=== PATIENT | female | born 1990 | race American Indian/Alaskan Native ===

== ENCOUNTER 2016-09-02 14:06 | Emergency (ER) | payer OTHER ==
[2016-09-02 15:29] VITALS: BP 132/94
--- NOTE | 2016-09-02 16:02 | Emergency Department Report ---
HPI - General Chief Complaint: Extremity Injury, Upper Time Seen by Provider: 09/02/16 15:46 - HPI HPI: Patient is a 26-year-old female who presents to ED complaining of left fore arm pain and swelling 1 week. 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 Patient states she went to the pediatric specialist who took a biopsy and said it was benign. Patient states she was told to return should be assessed if pain returned. Patient states she is here to follow up in signed the specialist. Patient describes pain as mild throbbing intermittent in nature that started 2 weeks ago. Patient denies fevers/chills/nausea/vomiting/drainage from mass/any open wounds/ trauma/redness/chest pain ED Past Medical Hx - Past Medical History Previous Medical History?: Yes Additional medical history: Previous strep infections as noted in HPI; pt has tumor on left tricep benign dx 2000 @ [facility] - Surgical History Past Surgical History?: No - Social History Smoking Status: Never Smoker Substance Use Type: None - Medications Home Medications: Home Medications Medication Instructions Recorded Confirmed Last Taken Type Amoxicillin [Amoxicillin TAB] 875 mg PO BID #20 tablet 02/22/13 Unknown Rx Acetamin/Codeine 120-12Mg/5 ml 5 ml PO TID PRN #120 ml 04/01/14 Unknown Rx [Tylenol/Codeine] Fluticasone [Flonase] 1 spray NS QDAY #1 bottle 04/01/14 Unknown Rx predniSONE [Deltasone] 20 mg PO QDAY #5 tab 04/01/14 Unknown Rx Ibuprofen [Motrin 800 MG tab] 800 mg PO TID #40 tablet 09/02/16 Unknown Rx ED Review of Systems ROS: Stated complaint: LEFT ARM PAIN/TUMOR Other details as noted in HPI Constitutional: denies: chills, fever Eyes: denies: eye pain, eye discharge, vision change ENT: denies: ear pain, throat pain Respiratory: denies: cough, shortness of breath, wheezing Cardiovascular: denies: chest pain, palpitations Endocrine: no symptoms reported. denies: flushing, intolerance to cold Gastrointestinal: denies: abdominal pain, nausea, diarrhea, constipation, melena , hematochezia Genitourinary: denies: urgency, dysuria, frequency, hematuria, discharge, abnormal menses, dyspareunia, other Musculoskeletal: denies: back pain, joint swelling, arthralgia, myalgia Skin: denies: rash, lesions Neurological: denies: headache, weakness, numbness, paresthesias, confusion, abnormal gait Psychiatric: denies: anxiety, depression Hematological/Lymphatic: denies: easy bleeding, easy bruising Physical Exam - Physical Exam Vital Signs: Vital Signs 09/02/16 15:22 Temperature 98.1 F Pulse Rate 100 H Blood Pressure 132/94 O2 Sat by Pulse 100 Oximetry Physical Exam: GENERAL: Alert and oriented x3, no apparent distress, Normal Gait, atraumatic. HEAD: Head is normocephalic and a-traumatic. EYES: Extra ocular muscles are intact. Pupils are equal, round, and reactive to light and accommodation. MOUTH:Mouth is well hydrated and without lesions. Patent airways. NECK: Supple. Non edematous, No carotid bruits. No lymphadenopathy or thyromegaly. LUNGS: Symetrical with respiration, No wheezing, no rales or crackles, CTAB. HEART: S1, S2 present, regular rate and rhythm without murmur, no rubs, no gallops. ABDOMEN: No organomegaly was noted,Positive bowel sounds, soft, and non- distended. . Nontender to palpation on all Quadrants, NO CVA tenderness. EXTREMITIES: Range of motion bilaterally upper and lower extremities. Pulse is present and equal bilaterally. Long/mass palpated underneath the biceps muscle proximal to armpit of the left arm. Nontender to palpation, nonerythematous, nonedematous NEUROLOGIC: No focal Deficit, Cranial nerves II through XII are grossly intact. No loss of sensation, . PSYCHIATRIC: Mood is congruent with affect, denies suicidal or homicidal ideations. SKIN: Warm and dry, No lesions, No ulceration or induration present. ED Course Vital Signs 09/02/16 15:22 Temperature 98.1 F Pulse Rate 100 H Blood Pressure 132/94 O2 Sat by Pulse 100 Oximetry ED Medical Decision Making - Medical Decision Making 6-year-old female presents with nonspecific mass to forearm. ED course: Patient received 800 mg of Motrin. Discussed the patient the need referral for specialist. Mass was nontender to palpation during exam. Discussed Motrin as needed for inflammation and pain. Discussed referral for surgeon for biopsy and further workup. Application of grade to follow up with specialist as referred. Discussed to take Motrin as needed for pain. Vital signs are stable patient is in no acute distress Critical care attestation.: If time is entered above; I have spent that time in minutes in the direct care of this critically ill patient, excluding procedure time. ED Disposition Clinical Impression: Mass of left axilla, Mass of left forearm Disposition: DISCHARGED TO HOME OR SELFCARE Is pt being admited?: No Does the pt Need Aspirin: No Condition: Stable Instructions: Superficial Mass Needle Biopsy (ED) Prescriptions: Ibuprofen [Motrin 800 MG tab] 800 mg PO TID #40 tablet Referrals: PRIMARY CARE, [Primary Care Provider] - 3-5 Days NIYAH MARIO MD [Referring] - 3-5 Days SIDRA MOLINA MD [Staff Physician] - 3-5 Days YUDY MALONE MD [Staff Physician] - 3-5 Days NINA MANNING PA [Staff Physician] - 3-5 Days NATHALY SINGLETON MD [Staff Physician] - 3-5 Days SERENA JOHNSON MD [Staff Physician] - 3-5 Days Forms: Accompanied Note, Work/School Release Form(ED) Time of Disposition: 16:43
[2016-09-02] MEDS ORDERED: MOTRIN PO ONE (16:42)
== END 2016-09-02 17:02 | disposition home or self-care (01) ==
LOC: ED 14:06
DX: R22.32 Localized swelling, mass and lump, left upper limb (principal); R22.9 Localized swelling, mass and lump, unspecified
CPT/HCPCS: 99282